=== PATIENT | female | born 2000 | race Caucasian/White ===

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

== ENCOUNTER 2018-03-07 02:46 | Emergency (ER) | payer BC ==
[2018-03-07] MEDS ORDERED: ONDANSETRON DISINTEGRATING 4 MG TAB PO ONE ×2 (02:51→04:48)
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
[2018-03-07] MEDS ORDERED: LORazepam 0.5 MG TAB PO ONE (03:28)
[2018-03-07 04:35] VITALS: BP 102/72
== END 2018-03-07 05:17 | disposition home or self-care (01) ==
LOC: EDUNIT#
DX: F10.920 Alcohol use, unspecified with intoxication, uncomplicated (principal); J45.909 Unspecified asthma, uncomplicated; F17.200 Nicotine dependence, unspecified, uncomplicated

== ENCOUNTER 2018-06-17 04:16 | Emergency (ER) | payer BC ==
[2018-06-17] MEDS ORDERED: LORazepam 1 MG TAB PO ONE (04:22)
--- NOTE | 2018-06-17 04:24 | EDPHY ---
H & P - Medical/Surgical History Hx Asthma: Yes Hx Chronic Respiratory Disease: No Hx Diabetes: No Hx Cardiac Disease: No Hx Renal Disease: No Hx Cirrhosis: No Hx Alcoholism: No Other PMH: asthma. depression/anxiety. migraines. IBS - Social History Smoking Status: Current some day smoker Time Seen by Provider: 06/17/18 04:25 HPI/ROS: Chief Complaint: Anxious, agitated HPI: 18-year-old woman with a history of depression, on Paxil and Wellbutrin. Patient was increased from 150 mg to 300 mg of Wellbutrin daily 3 days ago. Since that time she has been feeling increasingly agitated and shaky. She feels very spacey like she is not in her body. She is not suicidal or homicidal. She is not hallucinating. She is very emotional. No chest pain or shortness of breath. No nausea or vomiting. No abdominal pain. She states she is however seeing things. She seems things move when there is nothing there. He is having sounds from things that are not there. There is not hearing voices or seeing concrete objects. ROS: 10 point Review of Systems is negative except as noted in the HPI. PMH: Depression Social History: No smoking, no alcohol, no recreational drug use Family History: non-contributory Physical Exam: Gen: Awake, Alert, anxious, tearful, tachycardic HEENT: Nose: no rhinorrhea Eyes: PERRLA, EOMI Mouth: Moist mucosa Neck: Supple, no JVD Chest: nontender, lungs clear to auscultation Heart: S1, S2 normal, no murmur Abd: Soft, non-tender, no guarding Back: no CVA tenderness, no midline tenderness Ext: no edema, non-tender Skin: no rash Neuro: CN II-XII intact, Sensation grossly intact, Strength 5/5 in bilateral upper and lower extremities ([place]) Constitutional: Initial Vital Signs Temperature (C) 36.8 C 06/17/18 04:24 Heart Rate 120 H 06/17/18 04:24 Respiratory Rate 20 06/17/18 04:24 Blood Pressure 117/98 H 06/17/18 04:24 O2 Sat (%) 96 06/17/18 04:24 O2 Delivery Mode Room Air Allergies/Adverse Reactions: cefprozil [From Cefzil] Allergy (Unknown, Verified 06/17/18 04:23) Home Medications: Medication Instructions Recorded Prozac 10 MG (*) 02/23/17 Norethindrone AC-Eth Estradiol 1 each PO 09/01/17 [Loestrin 21 1-20 Tablet] buPROPion XL [Wellbutrin Xl] 150 mg PO DAILY 09/01/17 Medical Decision Making ED Course/Re-evaluation: 18-year-old woman presenting with increasing anxiety likely secondary to her increased dose of Wellbutrin. Will treat her with Ativan now. She is not suicidal. She is chris for safety. Patient still feeling very anxious after Ativan. She feels that she is seeing the turns moving and movement on the wall that is not there. Plan will be for med clearance labs and mental health evaluation. [id number] patient signed out to Dr. Brooks pending mental health evaluation. (Fox Bell) 7:20 A.M. patient has been evaluated by Mental Health. She is not suicidal or homicidal. She has a private psychiatrist in town that she will follow up within the next day or 2. She is asking for some Ativan to take at home of her anxiety returns. Will discharge her at this time. (Yasir Brooks) - Data Points Laboratory Results: Laboratory Results 06/17/18 06:15 06/17/18 06:15 06/17/18 06/17/18 06/17/18 06:15 06:15 06:15 WBC RBC Hgb Hct MCV MCH MCHC RDW Plt Count MPV Neut % (Auto) Lymph % (Auto) [place] % (Auto) Eos % (Auto) Baso % (Auto) Nucleat RBC Rel Count Absolute Neuts (auto) Absolute Lymphs (auto) Absolute Monos (auto) Absolute Eos (auto) Absolute Basos (auto) Absolute Nucleated RBC Immature Gran % Immature Gran # Sodium 143 mEq/L mEq/L (135-145) Potassium 3.8 mEq/L mEq/L (3.3-5.0) Chloride 109 mEq/L mEq/L (97-110) Carbon Dioxide 18 mEq/l L mEq/l (22-31) Anion Gap 16 mEq/L mEq/L (8-16) BUN 7 mg/dL mg/dL (7-23) Creatinine 0.8 mg/dL mg/dL (0.6-1.0) Estimated GFR > 60 Glucose 95 mg/dL mg/dL (70-100) Calcium 9.9 mg/dL mg/dL (8.5-10.4) Beta HCG, Qual NEGATIVE Urine Opiates Screen NON-NEGATIVE H (NEGATIVE) Urine Barbiturates NEGATIVE (NEGATIVE) Ur Phencyclidine Scrn NEGATIVE (NEGATIVE) Ur Amphetamine Screen NEGATIVE (NEGATIVE) U Benzodiazepines Scrn NON-NEGATIVE H (NEGATIVE) Urine Cocaine Screen NEGATIVE (NEGATIVE) U Marijuana (THC) Screen NON-NEGATIVE H (NEGATIVE) Ethyl Alcohol < 10 mg/dL mg/dL (0-10) 06/17/18 06:15 WBC 12.54 10^3/uL H 10^3/uL (3.80-9.50) RBC 4.67 10^6/uL 10^6/uL (4.18-5.33) Hgb 13.7 g/dL g/dL (12.6-16.3) Hct 41.3 % % (38.0-47.0) MCV 88.4 fL fL (81.5-99.8) MCH 29.3 pg pg (27.9-34.1) MCHC 33.2 g/dL g/dL (32.4-36.7) RDW 13.3 % % (11.5-15.2) Plt Count 295 10^3/uL 10^3/uL (150-400) MPV 11.0 fL fL (8.7-11.7) Neut % (Auto) 69.4 % % (39.3-74.2) Lymph % (Auto) 19.4 % % (15.0-45.0) [place] % (Auto) 4.9 % % (4.5-13.0) Eos % (Auto) 5.2 % % (0.6-7.6) Baso % (Auto) 0.8 % % (0.3-1.7) Nucleat RBC Rel Count 0.0 % % (0.0-0.2) Absolute Neuts (auto) 8.71 10^3/uL H 10^3/uL (1.70-6.50) Absolute Lymphs (auto) 2.43 10^3/uL 10^3/uL (1.00-3.00) Absolute Monos (auto) 0.61 10^3/uL 10^3/uL (0.30-0.80) Absolute Eos (auto) 0.65 10^3/uL H 10^3/uL (0.03-0.40) Absolute Basos (auto) 0.10 10^3/uL 10^3/uL (0.02-0.10) Absolute Nucleated RBC 0.00 10^3/uL 10^3/uL (0-0.01) Immature Gran % 0.3 % % (0.0-1.1) Immature Gran # 0.04 10^3/uL 10^3/uL (0.00-0.10) Sodium Potassium Chloride Carbon Dioxide Anion Gap BUN Creatinine Estimated GFR Glucose Calcium Beta HCG, Qual Urine Opiates Screen Urine Barbiturates Ur Phencyclidine Scrn Ur Amphetamine Screen U Benzodiazepines Scrn Urine Cocaine Screen U Marijuana (THC) Screen Ethyl Alcohol Medications Given: Discontinued Medications Sodium Chloride (Ns) 1,000 mls @ 0 mls/hr IV ONCE ONE; Wide Open PRN Reason: Protocol Stop: 06/17/18 06:07 Last Admin: 06/17/18 06:30 Dose: 1,000 mls Lorazepam (Ativan) 1 mg PO EDNOW ONE Stop: 06/17/18 04:23 Last Admin: 06/17/18 04:27 Dose: 1 mg Lorazepam (Ativan 1 Mg Prepack#4) 1 btl TAKEHOME EDNOW ONE Stop: 06/17/18 05:32 Last Admin: 06/17/18 06:31 Dose: Not Given Ondansetron HCl (Zofran Odt) 4 mg PO EDNOW ONE Stop: 06/17/18 05:47 Last Admin: 06/17/18 05:49 Dose: 4 mg Departure - Departure Disposition: Home, Routine, Self-Care Clinical Impression: Medication adverse effect, Anxiety Condition: Good Instructions: Lorazepam (By injection), Anxiety (ED) Additional Instructions: Lower your dose of Wellbutrin back to the 150 mg daily until you see your psychiatrist. Follow up with your psychiatrist in 1-2 days for adjustments in her medications. Return to the emergency depart for increasing anxiety, suicidal thoughts, hallucinations, feelings of hopelessness, or any other concerns. Referrals: NONE *PRIMARY CARE P,. [Primary Care Provider] - As per Instructions LINDSEY AGUILA [Non Staff Provider (MD)] - 1-2 days without fail
[2018-06-17] MEDS ORDERED: LORAZEPAM 1 MG PREPACK#4 BTL TAKEHOME ONE ×2 (05:31→07:24)
[2018-06-17] MEDS ORDERED: ONDANSETRON DISINTEGRATING 4 MG TAB ONE (05:45)
[2018-06-17] MEDS ORDERED: ONDANSETRON DISINTEGRATING 4 MG TAB PO ONE (05:46)
[2018-06-17] MEDS ORDERED: NS 1,000 ML IV ONE (06:06)
[2018-06-17 06:25] LABS: PLATELET COUNT 295 10^3/uL (150-400)
[2018-06-17 07:33] VITALS: BP 120/64
--- NOTE | 2018-06-17 08:23 | ASMTLCPROG ---
Notes Note: Notes: shift superintendent caustic cresylate ED provider, Patrice Bell MD requested TLC Fast Assessment. Met with pt who reported coming into the ED early this morning with c/o increased anxeity and agitation. She denied having suicidal/homical ideation/intent/plans to harm self/others. She reported being prescribed Paxil and that her Wellbutrin had been increased fro 150 mg daily to 300 mg daily as of 3 days ago. Her prescriber is Dr. Caro. She reported having plans to go on vacation to [place] and leaves on Saturday06/21/18 and to return on 07/11/18. UDS results were positive for opiates, benzodiazepine (pt given Ativan in ED prior to UDS), and marijuana. Informed pt that her UDS results were back and that she tested positive for some substances. Asked pt if she had any guess as to what she may have tested positive for. Pt stated she had taken an oxycodone yesterday for a headache - explains the positive result for opiate, and pt reported marijuana use. Consulted with day shift ED provider, Yasir Brooks MD who concurred that pt can be discharged and does not meet 27-65 criteria requiring psychiatric hospitalization. Discussed with pt for her to contact her prescriber again before she departs for [place] on Saturday. Date Signed: 06/17/2018 08:22 AM Electronically Signed By:José Antonio Wood
== END 2018-06-17 07:35 | disposition home or self-care (01) ==
LOC: EDUNIT#
DX: F41.9 Anxiety disorder, unspecified (principal); T45.1X5A Adverse effect of antineoplastic and immunosuppressive drugs, initial encounter; F17.200 Nicotine dependence, unspecified, uncomplicated; E86.9 Volume depletion, unspecified
CPT/HCPCS: 80305; G0480

== ENCOUNTER 2018-09-26 20:23 | Emergency (ER) | payer BC ==
[2018-09-26] MEDS ORDERED: NS 1,000 ML IV ONE (21:46)
--- NOTE | 2018-09-26 21:52 | EDPHY ---
General - History History Review: I reviewed the patient's medical records Smoking Status: Current some day smoker Time Seen by Provider: 09/26/18 21:48 Narrative: CHIEF COMPLAINT: Neck pain HISTORY OF PRESENT ILLNESS: Patient presents by private vehicle with her boyfriend at bedside with complaints of neck pain. She states that her symptoms actually started 2 days ago. At 1st this was subjective fever and chills with some mild neck discomfort. She did not actually take her temperature but "my forehead felt warm to other." She also had a sore throat over the past few days with some chills at times. She had minimal neck pain at that time. However this morning she woke with what she describes as a painful and stiff neck. She has not had a headache at any time and has no headache at this time. She has no dizziness at any point over the past few days or today. She has not felt febrile today. She has no sore throat today. She states the pain is at the base of her neck and then to the right of the neck. Minimal pain on the left. Worse with movement to the right and palpation. She has no numbness, tingling or weakness. No confusion per boyfriend at bedside. She has nausea but no vomiting. No chest pain, cough, shortness of breath, abdominal pain or urinary complaints. No rash. She went to a chiropractor today who "adjusted my neck and back,"without any improvement in her symptoms. She denies any headache following these adjustments. No improvement after taking hydrocodone earlier today. No position of comfort. No other associated complaints or modifying factors. REVIEW OF SYSTEMS: 10 systems were reviewed and negative with the exception of the elements mentioned in the history of present illness. PCP: [facility] SPECIALISTS: None PAST MEDICAL HISTORY: Kidney stones, depression, anxiety, migraines, asthma, irritable bowel syndrome PAST SURGICAL HISTORY: FESS Sinus surgery, rhinoplasty SOCIAL HISTORY: Occasional tobacco, alcohol marijuana use. [employer] student. Originally from [place], [place] FAMILY HISTORY: Noncontributory EXAMINATION: Vitals: Triage VS reviewed General Appearance: Alert, no distress. Nontoxic. Head: normocephalic, atraumatic Eyes: Pupils equal and round, no conjunctival pallor or injection ENT, Mouth: Mucous membranes moist Neck: Normal inspection, supple. Spinal tenderness on the right greater than left. No bony tenderness. No crepitus. No deformity. Negative straight leg raises. Respiratory: Lungs are clear to auscultation Cardiovascular: Regular rate and rhythm. No murmur Gastrointestinal: Abdomen is soft and nontender Back: non-tender, no bony abnormalities Neurological: Cranial nerves 2-12 are grossly intact. GCS 15. A&O, nonfocal, strength is symmetric in the limbs. Light sensory symmetric in the limbs. Normal mental status. Skin: Warm and dry, no rash. No petechiae or purpura Extremities: Nontender, no pedal edema Psychiatric: Mood and affect normal DIFFERENTIAL DIAGNOSES: Including but not limited to torticollis, muscle spasm, meningitis, dehydration , myositis, rhabdomyolysis MDM: 9:50 p.m. Acute neck pain with reported stiffness throughout the day. No headache. No vertigo. No neurologic findings. She reports subjective fever over the past few days but no fever today. She is in fact afebrile here with normal vital signs. She does not meet SIRS criteria. No altered mentation. She is well- appearing. I have ordered laboratory studies, IV Valium and will re-evaluate. 10:40 p.m. Notified by RN that the patient is having no response to the Valium. She is being evaluated by Dr. Baxter and I have ordered Toradol and Tylenol. I will re- evaluate after this. 11:10 p.m. Patient re-evaluated. She reports that she is starting to feel much better. She has no headache. She does have right-sided neck pain that is improving. She denies dizziness, lightheadedness, numbness, tingling or weakness. I do feel it is reasonable for to be discharged home at this time and she agrees. She is asking to be discharged home. We discussed continuation of Valium with use of ibuprofen/naproxen and Tylenol. We discussed that she may use her previously prescribed Dana but she cannot combine this with Valium. We discussed strict ED precautions for any development of headache, neck stiffness , fever, confusion, dizziness or lightheadedness. She is comfortable this plan. She is ambulatory without difficulty and discharged home stable condition. SUPERVISION: Patient was evaluated and examined in conjunction with my secondary supervising physician as documented. We have both examined the patient. CONSULTATION: None (Tramaine Fraga) Medical Decision Making: PHYSICIAN DOCUMENTATION: The patient was evaluated and managed by the Physician Bench Lathe Operator and myself. I have reviewed the chart and agree with the findings and plan of care as documented. In addition, I examined the patient myself at 2245. History confirmed as nontraumatic right neck pain which occurred before she had her chiropractic adjustment today. She does not have vertigo or being off balance or headache and the symptoms are all on the right side and are worse turning her head to the right and not necessarily flexing or extending. Physical findings as follows: She has muscles tenderness the right paraspinal neck area. Her mental status is alert and she is able to smile. She does not have george meningeal signs on exam. I think meningitis or carotid dissection or both unlikely, muscle spasm much more likely. I am the secondary supervising physician. (Diallo Baxter) - Objective Vital Signs: Initial Vital Signs Temperature (C) 97.7 F 09/26/18 20:29 Heart Rate 112 H 09/26/18 20:29 Respiratory Rate 18 09/26/18 20:29 Blood Pressure 115/77 09/26/18 20:29 O2 Sat (%) 95 09/26/18 20:29 O2 Delivery Mode Room Air Allergies/Adverse Reactions: cefprozil [From Cefzil] Allergy (Unknown, Verified 09/26/18 20:27) Home Medications: Medication Instructions Recorded Norethindrone AC-Eth Estradiol 1 each PO 09/01/17 [Loestrin 21 1-20 Tablet] VYVANSE 09/26/18 Viibryd 09/26/18 Laboratory Results: Laboratory Results 09/26/18 21:40 09/26/18 21:40 09/26/18 09/26/18 09/26/18 21:40 21:40 21:40 WBC 8.40 10^3/uL 10^3/uL (3.80-9.50) RBC 4.78 10^6/uL 10^6/uL (4.18-5.33) Hgb 13.7 g/dL g/dL (12.6-16.3) Hct 42.1 % % (38.0-47.0) MCV 88.1 fL fL (81.5-99.8) MCH 28.7 pg pg (27.9-34.1) MCHC 32.5 g/dL g/dL (32.4-36.7) RDW 13.7 % % (11.5-15.2) Plt Count 237 10^3/uL 10^3/uL (150-400) MPV 11.5 fL fL (8.7-11.7) Neut % (Auto) 63.2 % % (39.3-74.2) Lymph % (Auto) 25.5 % % (15.0-45.0) [place] % (Auto) 6.7 % % (4.5-13.0) Eos % (Auto) 3.7 % % (0.6-7.6) Baso % (Auto) 0.7 % % (0.3-1.7) Nucleat RBC Rel Count 0.0 % % (0.0-0.2) Absolute Neuts (auto) 5.31 10^3/uL 10^3/uL (1.70-6.50) Absolute Lymphs (auto) 2.14 10^3/uL 10^3/uL (1.00-3.00) Absolute Monos (auto) 0.56 10^3/uL 10^3/uL (0.30-0.80) Absolute Eos (auto) 0.31 10^3/uL 10^3/uL (0.03-0.40) Absolute Basos (auto) 0.06 10^3/uL 10^3/uL (0.02-0.10) Absolute Nucleated RBC 0.00 10^3/uL 10^3/uL (0-0.01) Immature Gran % 0.2 % % (0.0-1.1) Immature Gran # 0.02 10^3/uL 10^3/uL (0.00-0.10) Sodium 137 mEq/L mEq/L (135-145) Potassium 4.1 mEq/L mEq/L (3.3-5.0) Chloride 105 mEq/L mEq/L (97-110) Carbon Dioxide 23 mEq/l mEq/l (22-31) Anion Gap 9 mEq/L mEq/L (6-14) BUN 15 mg/dL mg/dL (7-23) Creatinine 0.7 mg/dL mg/dL (0.6-1.0) Estimated GFR > 60 Glucose 90 mg/dL mg/dL (70-100) Calcium 9.8 mg/dL mg/dL (8.5-10.4) Creatine Kinase 136 IU/L IU/L (0-156) Beta HCG, Qual NEGATIVE Medications Given: Discontinued Medications Acetaminophen (Tylenol) 650 mg PO EDNOW ONE Stop: 09/26/18 22:47 Last Admin: 09/26/18 23:01 Dose: 650 mg Diazepam (Valium) 5 mg IVP EDNOW ONE Stop: 09/26/18 22:06 Last Admin: 09/26/18 22:20 Dose: 5 mg Sodium Chloride (Ns) 1,000 mls @ 0 mls/hr IV EDNOW ONE; Wide Open PRN Reason: Protocol Stop: 09/26/18 21:47 Last Admin: 09/26/18 21:54 Dose: 1,000 mls Ketorolac Tromethamine (Toradol) 30 mg IVP EDNOW ONE Stop: 09/26/18 22:47 Last Admin: 09/26/18 23:01 Dose: 30 mg Departure - Departure Disposition: Home, Routine, Self-Care Clinical Impression: Acute neck pain, Torticollis, acute Condition: Good Instructions: Spasmodic Torticollis (ED), Acute Neck Pain (ED), Diazepam (By mouth) Additional Instructions: 1. Recommend [id number] Aleve, 2 pills by mouth twice daily. Next dose after 5:00 a.m. 2. Tylenol [id number], 650 mg every 6 hr 3. Valium 5 mg as provided at the emergency department. One pill by mouth every 8 hr as needed for neck pain. Next dose after 5:00 a.m. 4. Strict ED precautions for headache, neck stiffness, fever, confusion, dizziness or lightheadedness 5. Contact primary care physician for outpatient follow-up Referrals: Gina Pacheco MD [Medical Doctor] - As per Instructions [facility],. [Clinic] - As per Instructions
[2018-09-26] MEDS ORDERED: DIAZEPAM 5 MG/ML 1 ML SYR IVP ONE (22:05)
[2018-09-26 22:15] LABS: PLATELET COUNT 237 10^3/uL (150-400)
[2018-09-26 22:22] LABS: CREATINE KINASE 136 IU/L (0-156)
[2018-09-26] MEDS ORDERED: KETOROLAC 30 MG/1 ML SDV IVP ONE (22:46)
[2018-09-26] MEDS ORDERED: ACETAMINOPHEN 325 MG TAB PO ONE (22:46)
[2018-09-26] MEDS ORDERED: DIAZEPAM 5 MG PREPACK#4 BTL TAKEHOME ONE (23:19)
[2018-09-26 23:31] VITALS: BP 116/70
== END 2018-09-26 23:31 | disposition home or self-care (01) ==
DX: M54.2 Cervicalgia (principal); M43.6 Torticollis; E86.9 Volume depletion, unspecified
CPT/HCPCS: 96374; J1885; J3360

== ENCOUNTER 2019-03-10 23:39 | Emergency (ER) | payer BC ==
--- NOTE | 2019-03-11 01:02 | EDPHY ---
H & P Stated Complaint: hive to face Time Seen by Provider: 03/11/19 00:48 HPI/ROS: HPI The patient presents with left jaw rash which has been present for the last several days. Today is day 3 of the rash in she feels that it is getting progressively worse. She describes a burning and itching sensation which began slowly and waxes and wanes. She has been to the [facility] twice. She has been told that she has hives. She started Lamictal about 1 month ago and wonders if this is the cause. She contacted her prescribing physician and dose was decreased. She also uses Retin-A about once a week on her face in use this 4 days ago. She has no prior history of similar. 2 hr ago she took Benadryl and used a topical triamcinolone cream 0.05% and because things did not improved with this treatment, she comes to the emergency room. She denies to me any shortness of breath, wheezing, difficulty swallowing, vomiting, lightheadedness. REVIEW OF SYSTEMS 10 systems were reviewed and negative with the exception of the elements mentioned in the history of present illness. PMHx: Asthma, migraine headaches, depression Soc Hx: [employer] student PHYSICAL General Appearance: Alert, no distress Eyes: Pupils equal and round no pallor or injection ENT, Mouth: Mucous membranes moist Respiratory: Breathing comfortably Neurological: A&O, moves all extremities Skin: Warm and dry, left lower face with confluent erythematous rash which is not raised with surrounding small erythematous papules Musculoskeletal: Neck is supple non tender Extremities: symmetrical, full range of motion Psychiatric: Patient is oriented X 3, there is no agitation Source: Patient Exam Limitations: No limitations - Personal History LMP (Females 10-55): IUD In Place Current Tetanus Diphtheria and Acellular Pertussis (TDAP): Yes - Medical/Surgical History Hx Asthma: Yes Hx Chronic Respiratory Disease: No Hx Diabetes: No Hx Cardiac Disease: No Hx Renal Disease: No Hx Cirrhosis: No Hx Alcoholism: No Other PMH: asthma. depression/anxiety. migraines. IBS. KIDNEY STONES. mrsa nose. SINUS SURGERY 05/2018 - Social History Smoking Status: Current some day smoker Constitutional: Initial Vital Signs Temperature (C) 37.2 C 03/10/19 23:42 Heart Rate 113 H 03/10/19 23:42 Respiratory Rate 18 03/10/19 23:42 Blood Pressure 108/75 03/10/19 23:42 O2 Sat (%) 98 03/10/19 23:42 O2 Delivery Mode Room Air Allergies/Adverse Reactions: cefprozil [From Cefzil] Allergy (Unknown, Verified 09/26/18 20:27) Home Medications: Medication Instructions Recorded VYVANSE 09/26/18 Viibryd 09/26/18 RETIN-A 03/10/19 Medical Decision Making Differential Diagnosis: 19-year-old female with facial rash for the last 3 days which is itchy with no other symptoms. Suspect contact dermatitis verses urticaria. Patient has already been to [facility] twice. She has just started treatment with Benadryl and triamcinolone cream to hours ago. I have advised her that she needs to take this medication for the next several days before she may CT results. She does not have any signs of anaphylaxis. I have referred her to Dermatology for further care if she would like. Departure - Departure Disposition: Home, Routine, Self-Care Clinical Impression: Allergic reaction Qualifiers: Encounter type: initial encounter Qualified Code(s): T78.40XA - Allergy, unspecified, initial encounter Condition: Good Instructions: Contact Dermatitis (ED), Urticaria (ED) Additional Instructions: The rash that you have a in your face could be hives or contact dermatitis. You must continue taking Benadryl 25 mg every 6 hr around the clock. You should continue to use the triamcinolone cream as prescribed. If your rash continues, I have given you some information for the electronic installer and you can arrange for a follow-up appointment. Referrals: [facility],. [Clinic] - As per Instructions Ashkan Shah MD [Medical Doctor] - As per Instructions Yaquelin Murphy MD [Medical Doctor] - As per Instructions French Haney MD [Medical Doctor] - As per Instructions
[2019-03-11 01:18] VITALS: BP 108/69
== END 2019-03-11 01:18 | disposition home or self-care (01) ==
DX: T78.40XA Allergy, unspecified, initial encounter (principal)

== ENCOUNTER 2019-03-11 09:25 | Emergency (ER) | payer BC ==
[2019-03-11] MEDS ORDERED: predniSONE 20 MG TAB PO ONE (10:19)
[2019-03-11] MEDS ORDERED: FAMOTIDINE 20 MG TAB PO ONE (10:19)
--- NOTE | 2019-03-11 10:24 | EDPHY ---
General Time Seen by Provider: 03/11/19 09:44 Narrative: CLINICAL IMPRESSION: Urticaria ASSESSMENT/PLAN: 19-year-old female presents to the emergency department for the 2nd time in 24 hr with complaints of worsening and spreading rash to the face, legs, chest and back. Patient has had this rash for nearly 2 weeks, has been seen at [facility] twice, seen in this emergency department last night, compliant with Benadryl and Zyrtec, and reportedly decreased her Lamictal dose which is the only new medication she has been on. Today she states the rash spread to her entire face, chest, back, bilateral knees. It spares the palms and soles. No intraoral, mucous membrane, ocular or intravaginal involvement. No open wounds or blisters. No clinical signs to suggest SJS or TEN. She has been trying topical triamcinolone cream without significant improvement. At this point I think she would benefit from a short taper of prednisone which she has taken in the past. I strongly encouraged her to contact her psychiatrist today to explain her symptoms and try to get off Lamictal. She has no other new medications, topical agents or ingestions. She is not anaphylactic and her vital signs are stable. PCP follow-up recommended, warning signs return to ED sooner discussed in discharge. DIFFERENTIAL DX: Differential includes but not limited to contact dermatitis, allergic reaction to medications, SJS, TEN, anaphylaxis CHIEF COMPLAINT: Urticaria getting worse HPI: 19-year-old female presents to the emergency department with a worsening rash. Patient was seen last night for the same. She states rash developed approximately 2 weeks ago. Lamictal is her only new medication, prescribed by psychiatry in [place] for depression and anxiety. She contacted her psychiatrist yesterday and her dose was decreased but she is still taking this. She has seen [facility] twice. She has been told to follow up with Dermatology. Initially the rash was only a small spot on the face and has now spread to her entire face, chest, back and knees. It is very itchy. She has been taking Benadryl, Zyrtec, triamcinolone cream without relief. She has taken prednisone in the past without problem. No open wounds or blisters. No involvement of the mouth, tongue, lips, eyes or vagina. No other new allergens , soaps, detergents, or makeup. She reports she had lab work done at [facility] that was completely normal. PAST MEDICAL HISTORY: Depression and anxiety migraines, IBS, kidney stones See triage summary and nurse notes for addition applicable history Pertinent Past Surgical History: Sinus surgery Family History: None reported Social History: Current some day smoker, student at [employer] REVIEW OF SYSTEMS: A full 10 point review of systems was negative except for those mentioned in HPI. PHYSICAL EXAM: General Appearance: Alert, oriented, appropriate, tearful, cooperative, NAD, well hydrated, non-toxic appearing, VSS, no hypoxia. HEENT: TMs are clear bilaterally no perforation or FB, no injection, no evidence of serous or mucopurulent otitis. Oropharynx clear is no erythema or exudates, no tonsillar hypertrophy or asymmetry. No intraoral lesions, mucous membrane blistering or swelling Dentition without abnormality. Eyes: PERRLA, no acute vision change, nystagmus, swelling, discharge, pain or photosensitivity. Conjunctiva pink, no pallor or injection Neck: Supple, nontender, no lymphadenopathy, no midline pain, FROM, no meningismus. Respiratory: There are no retractions, lungs are clear to auscultation. Cardiac: Regular rate and rhythm, no murmurs or gallops. Skin: Scattered, blanchable, urticarial rash to back, chest, bilateral knees, face, and neck. No blisters or open wounds. No clinical signs to suggest SJS or TEN. MEDICAL DECISION MAKING: Patient was seen independently. Secondary supervising physician at time of evaluation was: Dr. Baxter. Diagnosis: Urticaria, allergic reaction . New, requires workup Summary: See Assessment and Plan for summary of ED visit Patient Progress: Stable for discharge. - History Smoking Status: Current some day smoker - Objective Vital Signs: Initial Vital Signs Temperature (C) 36.7 C 03/11/19 09:31 Heart Rate 98 03/11/19 09:31 Respiratory Rate 16 03/11/19 09:31 Blood Pressure 101/72 03/11/19 09:31 O2 Sat (%) 98 03/11/19 09:31 O2 Delivery Mode Room Air O2 (L/minute) 98 Allergies/Adverse Reactions: cefprozil [From Cefzil] Allergy (Unknown, Verified 03/11/19 09:39) Home Medications: Medication Instructions Recorded VYVANSE 09/26/18 Viibryd 09/26/18 LaMICtal 03/11/19 Spironolactone 03/11/19 predniSONE [Prednisone] 40 mg PO DAILY #20 tablet 03/11/19 Medications Given: Discontinued Medications Famotidine (Pepcid) 20 mg PO EDNOW ONE Stop: 03/11/19 10:20 Last Admin: 03/11/19 10:22 Dose: 20 mg Prednisone (Prednisone) 40 mg PO EDNOW ONE Stop: 03/11/19 10:20 Last Admin: 03/11/19 10:22 Dose: 40 mg Departure - Departure Disposition: Home, Routine, Self-Care Clinical Impression: Urticaria Condition: Good Instructions: Urticaria (ED) Additional Instructions: DISCHARGE INSTRUCTIONS FROM YOUR DOCTOR Thank you for visiting our emergency department today. You were treated by a physician sales office assistant today and your case was reviewed with our ED Attending physician. Please keep in mind that discharge from the emergency department does not mean that there is nothing wrong - it simply means that we have not identified an emergency condition that requires further evaluation or treatment in the hospital. You should always plan to follow up with primary care for re- evaluation of your condition in the next 2-3 days. If you have been referred to a specialist, please call as soon as possible (today or tomorrow) to schedule your follow up appointment at the appropriate time. PLEASE TAKE PREDNISONE PRESCRIBED. CONTINUE TAKING BENADRYL AT NIGHT, ZYRTEC DURING THE DAY AND ADD FAMOTIDINE TWICE DAILY. FOLLOW UP WITH HER PSYCHIATRIST REGARDING HER LAMICTAL DOSE. PLEASE SEE A PRIMARY CARE DOCTOR OR HEAVY EQUIPMENT OPERATOR APPRENTICE WELL. RETURN TO THE EMERGENCY DEPARTMENT IMMEDIATELY FOR INCREASED SPREADING RASH, OPEN WOUNDS OR BLISTERS, RASH OR LESIONS INSIDE THE MOUTH OR VAGINA, TROUBLE BREATHING, CHEST TIGHTNESS, TROUBLE SWALLOWING HER OWN SALIVA, OR ANY OTHER CONCERNS. People present with illnesses and injuries in different ways, and it is always possible that we have missed something. You may always return for re-evaluation if symptoms worsen or if they are not improving or if you develop new/different symptoms. Again, thank you for choosing our emergency department. We hope that you feel better. Referrals: NONE *PRIMARY CARE P,. [Primary Care Provider] - As per Instructions Rodriguez Hooks MD [Medical Doctor] - As per Instructions Stand Alone Forms: School Excuse Prescriptions: predniSONE [Prednisone] 40 mg PO DAILY #20 tablet
[2019-03-11 10:32] VITALS: BP 121/69
== END 2019-03-11 10:33 | disposition home or self-care (01) ==
DX: L50.9 Urticaria, unspecified (principal)
CPT/HCPCS: J7512